=== PATIENT | male | born 1970 | race Caucasian/White ===

== ENCOUNTER → 2017-03-28 | Outpatient (CLI) | payer BC | LOC: KOH-I 12:13 | DX: R05 Cough (principal); R91.8 Other nonspecific abnormal finding of lung field | CPT/HCPCS: 71020 ==

== ENCOUNTER → 2021-04-21 | Outpatient (CLI) | payer OTHER | LOC: KOH-I 16:00 | DX: M25.522 Pain in left elbow (principal); M54.5 Low back pain; M79.641 Pain in right hand; M50.323 Other cervical disc degeneration at C6-C7 level; M48.02 Spinal stenosis, cervical region; W01.198A Fall on same level from slipping, tripping and stumbling with subsequent striking against other object, initial encounter | CPT/HCPCS: 72100; 72125; 73080; 73130 ==

== ENCOUNTER → 2021-07-28 | Outpatient (CLI) | payer OTHER | LOC: KOH-I 14:30 | DX: M50.10 Cervical disc disorder with radiculopathy, unspecified cervical region (principal); M54.5 Low back pain; W19.XXXD Unspecified fall, subsequent encounter; M47.816 Spondylosis without myelopathy or radiculopathy, lumbar region; M48.061 Spinal stenosis, lumbar region without neurogenic claudication | CPT/HCPCS: 72141; 72148 ==

== ENCOUNTER → 2022-04-28 | Outpatient (CLI) | payer BC | LOC: KOH-I 15:28 | DX: R79.89 Other specified abnormal findings of blood chemistry (principal); R91.8 Other nonspecific abnormal finding of lung field | CPT/HCPCS: 71046 ==

== ENCOUNTER → 2022-05-06 | Outpatient (CLI) | payer BC | LOC: ECHO 09:37 | DX: R79.89 Other specified abnormal findings of blood chemistry (principal) | CPT/HCPCS: ECHO; 93306 ==